=== PATIENT | male | born 1935 | race African-American/Black ===

== ENCOUNTER 2018-08-14 01:23 | Inpatient (IN) | payer MEDICARE ==
[2018-08-14] MEDS ORDERED: NACL 0.9% 1000 ML 1,000 ML IV ONE (02:09)
[2018-08-14 03:04] LABS: Basophils % (Auto) 0.1 % (0.0-1.8); Eosinophils % (Auto) 0.4 % (0.0-4.3); Hematocrit 29.7 % (35.5-45.6); Hemoglobin 10.6 gm/dl (11.8-15.2); Lymphocytes % (Auto) 10.8 % (13.4-35.0); Mean Corpuscular HGB Conc 36 % (32-34); Mean Corpuscular Volume 98 fl (84-94); Monocytes # (Auto) 0.8 K/mm3 (0.0-0.8); Monocytes % (Auto) 7.9 % (0.0-7.3); Platelet Count 187 K/mm3 (140-440); Red Blood Count 3.05 M/mm3 (3.65-5.03)
[2018-08-14 03:27] LABS: Alanine Aminotransferase 12 units/L (7-56); Albumin 3.9 g/dL (3.9-5); BUN/Creatinine Ratio 11; Blood Urea Nitrogen 9 mg/dL (9-20); Calcium 8.3 mg/dL (8.4-10.2); Hemolysis Index 20
[2018-08-14] MEDS ORDERED: ZOFRAN IV ONE (03:28)
[2018-08-14] MEDS ORDERED: TORADOL IV ONE (03:28)
[2018-08-14 03:49] LABS: Bilirubin,Urine NEG (Negative); Blood,Urine NEG (Negative); Color,Urine Yellow (Yellow); Mucus,Urine FEW /HPF; Urobilinogen,Urine < 2.0 mg/dL (<2.0); WBC,Urine < 1.0 /HPF (0.0-6.0)
--- NOTE | 2018-08-14 04:40 | Emergency Department Report ---
ED N/V/D HPI - General Chief complaint: Abdominal Pain Stated complaint: VOMITING/DIZZY/ABD & BACK PAIN Time Seen by Provider: 08/14/18 03:07 Source: patient Mode of arrival: Ambulatory Limitations: No Limitations - History of Present Illness Initial comments: 82-year-old male, hx of diabetes, presents to ED with complaint of vomiting, dizziness, lower abdominal pain radiating to the back since last night. Denies fever, diarrhea. Reports urinary frequency. No prior abdominal surgical history. PCP: Dr Benjamín TADEO complaint: nausea, vomiting, abdominal pain -: Last night Description of Vomiting: food contents, watery Associated Abdominal Pain: Yes Radiation: other (lower back) Severity: moderate Consistency: intermittent Improves with: none Worsens with: none Associated Symptoms: nausea/vomiting, weakness. denies: fever/chills, dysuria - Related Data Allergies Allergy/AdvReac Type Severity Reaction Status Date / Time No Known Allergies Allergy Verified 08/14/18 03:09 ED Review of Systems ROS: Stated complaint: VOMITING/DIZZY/ABD & BACK PAIN Other details as noted in HPI Comment: All other systems reviewed and negative Constitutional: denies: chills, fever Respiratory: denies: shortness of breath Cardiovascular: denies: chest pain Gastrointestinal: abdominal pain, nausea, vomiting Genitourinary: frequency Neurological: other (reports dizziness) ED Past Medical Hx - Past Medical History Hx Diabetes: Yes - Surgical History Additional Surgical History: TURP - Social History Smoking Status: Former Smoker Substance Use Type: None ED Physical Exam - General Limitations: No Limitations General appearance: alert, in no apparent distress - Head Head exam: Present: atraumatic, normocephalic - Eye Eye exam: Present: normal appearance - ENT ENT exam: Present: mucous membranes moist - Neck Neck exam: Present: normal inspection - Respiratory Respiratory exam: Present: normal lung sounds bilaterally. Absent: respiratory distress - Cardiovascular Cardiovascular Exam: Present: regular rate, normal rhythm - GI/Abdominal GI/Abdominal exam: Present: soft, tenderness (mild diffuse tenderness). Absent: distended - Extremities Exam Extremities exam: Present: normal inspection - Neurological Exam Neurological exam: Present: alert, oriented X3 - Psychiatric Psychiatric exam: Present: normal affect, normal mood - Skin Skin exam: Present: warm, dry, intact, normal color, rash (psoriatic rash present) ED Course Vital Signs 08/14/18 08/14/18 08/14/18 01:33 02:04 04:00 Temperature 97.8 F 97.8 F Pulse Rate 91 H 82 Respiratory 18 20 18 Rate Blood Pressure 119/73 119/73 O2 Sat by Pulse 97 99 100 Oximetry 08/14/18 04:40 Temperature Pulse Rate Respiratory 18 Rate Blood Pressure O2 Sat by Pulse Oximetry ED Medical Decision Making - Lab Data Result diagrams: 08/14/18 02:18 08/14/18 02:18 - Radiology Data Radiology results: report reviewed, image reviewed - Medical Decision Making 82-year-old male with nausea, vomiting, dizziness, abdominal pain. Vital signs normal and the patient is afebrile. UA negative for UTI. CT shows likely enteritis, gallstones w/o cholecystitis. Patient's sodium level is critically low at 116. Remainder of labs unremarkable. IV fluids given. Will admit to Dr Thomas, hospitalist, for further management. - Differential Diagnosis UTI, bowel obstruction, diverticulitis, appendicitis Critical Care Time: Yes Critical care time in (mins) excluding proc time.: 30 Critical care attestation.: If time is entered above; I have spent that time in minutes in the direct care of this critically ill patient, excluding procedure time. Critical Care Time: 30 minutes ED Disposition Clinical Impression: Hyponatremia, Enteritis Disposition: OP ADMIT IP TO THIS HOSP Is pt being admited?: Yes Condition: Serious Referrals: WILD ROSS MD [Primary Care Provider] - 3-5 Days Time of Disposition: 05:03
--- NOTE | 2018-08-14 04:42 | Cat Scan Report ---
PROCEDURE: CT ABDOMEN PELVIS W CON TECHNIQUE: Routine axial imaging was obtained of the abdomen and pelvis following the intravenous in jection of IV contrast. Delayed imaging was obtained of the kidneys ureters and bladder. Sagittal and coronal reconstructions were reviewed. HISTORY: abd pain, vomiting COMPARISONS: None FINDINGS: The lung bases reveal bronchiectatic changes in both lower lobes. There are no infiltrates or effusio ns. There is a small hiatal hernia. The gallbladder is normal size and reveal several dependent stones. There are no secondary signs of a cute cholecystitis. The liver and biliary tree appear normal. The pancreas, spleen and adrenal glands appear normal. The kidneys show no evidence of stones or hydronephrosis. There is a 1 cm benign freddie ical cyst in the ventral aspect of the left kidney. The abdominal aorta shows peripheral calcificatio n. It is normal in caliber. The portal vein enhances normally. The bowel loops reveal multiple uncomplicated sigmoid diverticula. There are several mildly distended loops of ileum in the pelvis. A mild enteritis cannot be ruled out. There Is no evidence of bowel ob struction. The appendix appears normal. In the pelvis there is generalized thickening of the bladder wall. Cystitis cannot be excluded. The prostate gland is normal size. The skeletal structures reveal multilevel disc degeneration in the lumbar spine with arthritic changes of both hip joints. IMPRESSION: Several mildly distended fluid-filled loops of ileum in the pelvis without transition point. A mild e nteritis cannot be excluded. No evidence of appendicitis. Uncomplicated sigmoid diverticulosis. Generalized bladder wall thickening. Cystitis cannot be ruled out. Gallstones. No secondary signs of acute cholecystitis. Bronchiectatic changes in both lower lobes. No infiltrates or effusions. Small hiatal hernia.. This document is electronically signed by Henrry Armando MD., August 14 2018 04:39:37 AM ET
[2018-08-14] MEDS ORDERED: TYLENOL PO PRN (05:16)
[2018-08-14] MEDS ORDERED: SODIUM CHLORIDE FLUSH SYRINGE 10 ML IV PRN (05:16)
[2018-08-14] MEDS ORDERED: ZOFRAN IV PRN (05:16)
[2018-08-14 05:54] LABS: BUN/Creatinine Ratio 10; Blood Urea Nitrogen 8 mg/dL (9-20); Calcium 7.2 mg/dL (8.4-10.2); Hemolysis Index 4
--- NOTE | 2018-08-14 06:02 | History and Physical Report ---
History of Present Illness Date of examination: 08/14/18 History of present illness: 83-year-old man history of diabetes, psoriasis, BPH emergency room with complaints of nausea vomiting and lower abdominal pain. The abdominal pain is the mid lower abdomen which she describes as a heaviness sensation, constant, radiating to the back, intensity 5/10, cannot identify exacerbating or relieving factors Review of systems Constitutional: no weight loss, chills, fever Ears, eyes, nose, mouth and throat: no nasal congestion, no nasal discharge, no sinus pressure, no vision change, no red eye. Neck: No neck pain or rigidity. Cardiovascular: no palpitations, chest pain Respiratory: no cough, shortness of breath Gastrointestinal: no hematochezia, abdominal pain Genitourinary : no frequency , no hematuria Musculoskeletal: no joint swelling or muscle ache Integumentary: no rash, no pruritis Neurological: no parathesias, no focal weakness Endocrine: no cold or heat intolerance, no polyuria or polydipsia Hematologic/Lymphatic: no easy bruising, no easy bleeding, no gland swelling Allergic/Immunologic: no urticaria, no angioedema. PAST MEDICAL HISTORY:diabetes, psoriasis, BPH PAST SURGICAL HISTORY: None SOCIAL HISTORY: Denies alcohol, drugs, tobacco FAMILY HISTORY: Hypertension Medications and Allergies Allergies Allergy/AdvReac Type Severity Reaction Status Date / Time No Known Allergies Allergy Verified 08/14/18 03:09 Home Medications Medication Instructions Recorded Confirmed Last Taken Type Albuterol Sulfate [Ventolin Hfa] 2 puff INHALATION Q4HR PRN 08/14/18 08/14/18 Unknown History Lisinopril [Zestril TAB] 40 mg PO QDAY 08/14/18 08/14/18 Unknown History Meloxicam 15 mg PO QDAY PRN 08/14/18 08/14/18 Unknown History Metformin HCl [Glucophage] 500 mg PO BID 08/14/18 08/14/18 Unknown History Tamsulosin [Flomax] 0.4 mg PO QDAY 08/14/18 08/14/18 Unknown History Triamcinolone 0.1% [Kenalog 0.1% 1 applic TP BID 08/14/18 08/14/18 Unknown History CREAM] traMADol [Ultram 50 MG tab] 50 mg PO Q6HR PRN 08/14/18 08/14/18 Unknown History Promethazine [Phenergan TAB] 25 mg PO Q6HR PRN #20 tab 08/15/18 Unknown Rx Active Meds: Active Medications Acetaminophen (Tylenol) 650 mg PO Q4H PRN PRN Reason: Pain MILD(1-3)/Fever >100.5/VALDERRAMA Enoxaparin Sodium (Lovenox) 40 mg SUB-Q QDAY@1000 FLORA Sodium Chloride (Nacl 0.9% 1000 Ml) 1,000 mls @ 250 mls/hr IV ONCE ONE Stop: 08/14/18 06:08 Last Admin: 08/14/18 04:38 Dose: 250 mls/hr Documented by: Sodium Chloride (Nacl 0.9% 1000 Ml) 1,000 mls @ 75 mls/hr IV DIRECT FLORA Ondansetron HCl (Zofran) 4 mg IV Q8H PRN PRN Reason: Nausea And Vomiting Sodium Chloride (Sodium Chloride Flush Syringe 10 Ml) 10 ml IV BID FLORA Sodium Chloride (Sodium Chloride Flush Syringe 10 Ml) 10 ml IV PRN PRN PRN Reason: LINE FLUSH Exam - Physical Exam Narrative exam: General Apperance: The patient lying in bed, breathing comfortable HEENT: Normocephalic, atraumatic. Pupils equally round and reactive to light, EOMI, no sclericterus or JVD or thyromegaly or nodule. , no carotid bruit, mucous membranes moist, no exudate or erythema Heart: S1-S2, regular is rhythm Lungs: Clear to auscultation bilaterally, breathing comfortable Abdomen: Positive bowel sounds, soft, nontender, nondistended, no organomegaly Extremities: No edema cyanosis clubbing Skin: no rash, nodule, warm and dry Neuro: cranial nerves 2-12 intact, speech is fluent, motor/sensory intact - Constitutional Vitals: Temp Pulse Resp BP Pulse Ox 97.8 F 82 16 119/73 100 08/14/18 02:04 08/14/18 02:04 08/14/18 05:10 08/14/18 02:04 08/14/18 04:00 Results - Labs CBC & Chem 7: 08/15/18 04:34 08/15/18 04:34 Labs: Abnormal lab results 08/14/18 08/14/18 08/14/18 Range/Units 02:18 02:18 05:27 RBC 3.05 L (3.65-5.03) M/mm3 Hgb 10.6 L (11.8-15.2) gm/dl Hct 29.7 L (35.5-45.6) % MCV 98 H (84-94) fl MCH 35 H (28-32) pg MCHC 36 H (32-34) % Lymph % (Auto) 10.8 L (13.4-35.0) % [place] % (Auto) 7.9 H (0.0-7.3) % Lymph # 1.0 L (1.2-5.4) K/mm3 Seg Neutrophils % 80.8 H (40.0-70.0) % Sodium 116 L* (137-145) mmol/L Chloride 81.6 L 82.9 L (98-107) mmol/L Carbon Dioxide 21 L (22-30) mmol/L BUN 8 L (9-20) mg/dL Glucose 120 H 114 H (75-100) mg/dL Calcium 8.3 L 7.2 L (8.4-10.2) mg/dL - Imaging and Cardiology CT scan - abdomen: report reviewed CT scan - pelvis: report reviewed Assessment and Plan Assessment Hyponatremia Diabetes history of psoriasis Plan Admit to medicine Start IV fluid, monitor sodium, consult renal Check fingersticks, continue appropriate outpatient medications DVT prophylaxis
[2018-08-14] MEDS ORDERED: D50W (25GM) Syringe IV PRN (06:03)
[2018-08-14] MEDS: HumaLOG SUB-Q SCH ×4 (07:58→21:00)
[2018-08-14] MEDS ORDERED: GLUCOPHAGE PO SCH (08:00)
[2018-08-14] MEDS ORDERED: LOVENOX SUB-Q SCH (10:00)
[2018-08-14] MEDS: LOVENOX SUB-Q SCH (10:08)
[2018-08-14] MEDS: FLOMAX PO SCH (10:09)
[2018-08-14] MEDS: SODIUM CHLORIDE FLUSH SYRINGE 10 ML IV SCH ×2 (10:10→21:01)
[2018-08-14] MEDS: KENALOG TP SCH ×2 (10:18→21:01)
[2018-08-14] MEDS: ZESTRIL PO SCH (10:20)
[2018-08-14 12:04] LABS: BUN/Creatinine Ratio 11; Blood Urea Nitrogen 9 mg/dL (9-20); Calcium 8.3 mg/dL (8.4-10.2); Hemolysis Index 11
--- NOTE | 2018-08-14 13:24 | Consultation ---
History of Present Illness - History of Present Illness Thank you for the consultation ! Patient was evaluated today My assessment and plan are as follows; Hyponatremia in a patient who has been admitted with a serum sodium of 116,, e tiology of hyponatremia appears to be unclear at this time, but appears to be satisfactorily improving Sodium chloride tablets 2 g 3 times a day for now Patient admitted with nausea, vomiting. Has history of diabetes, has had lower abdominal pain radiating to back Anemia with hemoglobin of 10.6, requires further workup Patient was taking meloxicam as well as Zestril in the outpatient setting, Mild metabolic acidosis: To follow, uterine specimen gravity was around 1.018 Proteinuria approximately 100 mg We'll order workup for hyponatremia . Monitor serial sodium level Discussed with Dr. Rohan Alexander Patient was adequately counseled and educated regarding multiple renal related issues. Renal prognosis remains guarded at this time All renal related questions were answered and simple [place] pertinent lab studies as well as imaging results were also discussed with patient We will continue to follow and make recommendations from renal standpoint. Thank you for the consultation Author: Chi Izaguirre M.D. [facility], [address] [place] [address] Tel; [phone] Source of information: From patient, his , current records History of present illness Patient is an 82-year-old [place] male who has been admitted here with nausea vomiting and diarrhea, he is a very poor historian, sodium was noted to be low upon admission is currently being followed by Dr. Romario Butts blood pressure upon admission was normal however the serum sodium was 116 with chloride of 81.6 creatinine was 0.8 with hemoglobin of 10.6, patient clinically appeared to be dehydrated currently on IV fluid his sodium is slowly improving Past medical history significant for Diabetes Psoriasis Benign prostatic hyperplasia Chronic pain Taking nonsteroidal drug Current allergies: Reviewed Home medication/current medication: Reviewed/ Social history/family history: Reviewed Review of systems positive for nausea vomiting lower abdominal pain and poor by mouth intake All other review of systems negative Physical examination Vitals: Reviewed General: No acute distress HEENT: Oral mucosa moist no pallor or icterus Neck: Supple without any JVD thyromegaly or nodular mass Chest: Clear to auscultation Heart: Regular rate and rhythm S1-S2 heard no S3-S4 Abdomen: Soft nontender, bowel sounds present no renal bruit no suprapubic masses no CVA tenderness noted Extremity: Minimal edema dry skin no peripheral cyanosis Endocrine: Thyroid not enlarged Psychiatric: No agitation and aggression noted Musculoskeletal: No joint effusion noted Labs and x-rays: Reviewed from this admission Medications and Allergies Allergies Allergy/AdvReac Type Severity Reaction Status Date / Time No Known Allergies Allergy Verified 08/14/18 03:09 Home Medications Medication Instructions Recorded Confirmed Last Taken Type Albuterol Sulfate [Ventolin Hfa] 2 puff INHALATION Q4HR PRN 08/14/18 08/14/18 Unknown History Lisinopril [Zestril TAB] 40 mg PO QDAY 08/14/18 08/14/18 Unknown History Meloxicam 15 mg PO QDAY PRN 08/14/18 08/14/18 Unknown History Metformin HCl [Glucophage] 500 mg PO BID 08/14/18 08/14/18 Unknown History Tamsulosin [Flomax] 0.4 mg PO QDAY 08/14/18 08/14/18 Unknown History Triamcinolone 0.1% [Kenalog] 1 applic TP BID 08/14/18 08/14/18 Unknown History traMADol [Ultram] 50 mg PO Q6HR PRN 08/14/18 08/14/18 Unknown History Active Meds: Active Medications Acetaminophen (Tylenol) 650 mg PO Q4H PRN PRN Reason: Pain MILD(1-3)/Fever >100.5/VALDERRAMA Dextrose (D50w (25gm) Syringe) 50 ml IV PRN PRN PRN Reason: Hypoglycemia Enoxaparin Sodium (Lovenox) 40 mg SUB-Q QDAY@1000 FLORA Last Admin: 08/14/18 10:08 Dose: 40 mg Documented by: Sodium Chloride (Nacl 0.9% 1000 Ml) 1,000 mls @ 75 mls/hr IV DIRECT FLORA Insulin Human Lispro (Humalog) 0 unit SUB-Q ACHS [facility]; Protocol Last Admin: 08/14/18 07:58 Dose: Not Given Documented by: Lisinopril (Zestril) 40 mg PO QDAY [facility] Last Admin: 08/14/18 10:20 Dose: 40 mg Documented by: Ondansetron HCl (Zofran) 4 mg IV Q8H PRN PRN Reason: Nausea And Vomiting Sodium Chloride (Sodium Chloride Flush Syringe 10 Ml) 10 ml IV BID [facility] Last Admin: 08/14/18 10:10 Dose: 10 ml Documented by: Sodium Chloride (Sodium Chloride Flush Syringe 10 Ml) 10 ml IV PRN PRN PRN Reason: LINE FLUSH Tamsulosin HCl (Flomax) 0.4 mg PO QDAY [facility] Last Admin: 08/14/18 10:09 Dose: 0.4 mg Documented by: Triamcinolone Acetonide (Kenalog) 1 applic TP BID [facility] Last Admin: 08/14/18 10:18 Dose: 1 applic Documented by: Exam - Vital Signs Vital signs: Vital Signs Temp Pulse Resp BP Pulse Ox 97.8 F 91 H 18 119/73 97 08/14/18 01:33 08/14/18 01:33 08/14/18 01:33 08/14/18 01:33 08/14/18 01:33 Results - Lab Results 08/14/18 02:18 08/14/18 11:18 Most recent lab results Calcium 8.3 mg/dL (8.4-10.2) L D 08/14/18 11:18
--- NOTE | 2018-08-14 14:25 | Progress Note ---
Assessment and Plan Assessment and plan: Event note: Patient presents with nausea, vomiting. I have seen and examined him. Nephrology following for hyponatremia. Hospitalist Physical - Constitutional Vitals: Temp Pulse Resp BP Pulse Ox 97.6 F 84 18 151/62 96 08/14/18 09:00 08/14/18 09:00 08/14/18 09:00 08/14/18 09:00 08/14/18 09:00 Results - Labs CBC & Chem 7: 08/15/18 04:34 08/15/18 04:34 Labs: Laboratory Last Values WBC 9.5 K/mm3 (4.5-11.0) 08/14/18 02:18 RBC 3.05 M/mm3 (3.65-5.03) L 08/14/18 02:18 Hgb 10.6 gm/dl (11.8-15.2) L 08/14/18 02:18 Hct 29.7 % (35.5-45.6) L 08/14/18 02:18 MCV 98 fl (84-94) H 08/14/18 02:18 MCH 35 pg (28-32) H 08/14/18 02:18 MCHC 36 % (32-34) H 08/14/18 02:18 RDW 15.0 % (13.2-15.2) 08/14/18 02:18 Plt Count 187 K/mm3 (140-440) 08/14/18 02:18 Lymph % (Auto) 10.8 % (13.4-35.0) L 08/14/18 02:18 [place] % (Auto) 7.9 % (0.0-7.3) H 08/14/18 02:18 Eos % (Auto) 0.4 % (0.0-4.3) 08/14/18 02:18 Baso % (Auto) 0.1 % (0.0-1.8) 08/14/18 02:18 Lymph # 1.0 K/mm3 (1.2-5.4) L 08/14/18 02:18 [place] # 0.8 K/mm3 (0.0-0.8) 08/14/18 02:18 Eos # 0.0 K/mm3 (0.0-0.4) 08/14/18 02:18 Baso # 0.0 K/mm3 (0.0-0.1) 08/14/18 02:18 Seg Neutrophils % 80.8 % (40.0-70.0) H 08/14/18 02:18 Seg Neutrophils # 7.7 K/mm3 (1.8-7.7) 08/14/18 02:18 Sodium 121 mmol/L (137-145) L D 08/14/18 11:18 Potassium 4.3 mmol/L (3.6-5.0) 08/14/18 11:18 Chloride 84.8 mmol/L (98-107) L 08/14/18 11:18 Carbon Dioxide 23 mmol/L (22-30) 08/14/18 11:18 Anion Gap 18 mmol/L 08/14/18 11:18 BUN 9 mg/dL (9-20) 08/14/18 11:18 Creatinine 0.8 mg/dL (0.8-1.5) 08/14/18 11:18 Estimated GFR > 60 ml/min 08/14/18 11:18 BUN/Creatinine Ratio 11 % 08/14/18 11:18 Glucose 91 mg/dL (75-100) 08/14/18 11:18 POC Glucose 104 (70-105) 08/14/18 11:28 Calcium 8.3 mg/dL (8.4-10.2) L D 08/14/18 11:18 Total Bilirubin 0.70 mg/dL (0.1-1.2) 08/14/18 02:18 AST 25 units/L (5-40) 08/14/18 02:18 ALT 12 units/L (7-56) 08/14/18 02:18 Alkaline Phosphatase 99 units/L (35-129) 08/14/18 02:18 Total Protein 6.6 g/dL (6.3-8.2) 08/14/18 02:18 Albumin 3.9 g/dL (3.9-5) 08/14/18 02:18 Albumin/Globulin Ratio 1.4 % 08/14/18 02:18 Lipase 23 units/L (13-60) 08/14/18 02:18 Urine Color Yellow (Yellow) 08/14/18 03:30 Urine Turbidity Clear (Clear) 08/14/18 03:30 Urine pH 7.0 (5.0-7.0) 08/14/18 03:30 Ur Specific [place] 1.018 (1.003-1.030) 08/14/18 03:30 Urine Protein 100 mg/dl mg/dL (Negative) 08/14/18 03:30 Urine Glucose (UA) 50 mg/dL (Negative) 08/14/18 03:30 Urine Ketones Tr mg/dL (Negative) 08/14/18 03:30 Urine Blood Neg (Negative) 08/14/18 03:30 Urine Nitrite Neg (Negative) 08/14/18 03:30 Urine Bilirubin Neg (Negative) 08/14/18 03:30 Urine Urobilinogen < 2.0 mg/dL (<2.0) 08/14/18 03:30 Ur Leukocyte Esterase Neg (Negative) 08/14/18 03:30 Urine WBC (Auto) < 1.0 /HPF (0.0-6.0) 08/14/18 03:30 Urine RBC (Auto) 5.0 /HPF (0.0-6.0) 08/14/18 03:30 U Epithel Cells (Auto) < 1.0 /HPF (0-13.0) 08/14/18 03:30 Urine Mucus Few /HPF 08/14/18 03:30
[2018-08-14] MEDS: SODIUM CHLORIDE PO SCH ×2 (17:27→20:25)
[2018-08-14] MEDS: NACL 0.9% 1000 ML 1,000 ML IV SCH (20:59)
[2018-08-15 05:05] LABS: Hematocrit 29.6 % (35.5-45.6); Hemoglobin 10.3 gm/dl (11.8-15.2); Mean Corpuscular HGB Conc 35 % (32-34); Mean Corpuscular Volume 95 fl (84-94); Platelet Count 181 K/mm3 (140-440); Red Blood Count 3.13 M/mm3 (3.65-5.03); Red Cell Distribution Width 15.2 % (13.2-15.2)
[2018-08-15 05:46] LABS: BUN/Creatinine Ratio 10; Blood Urea Nitrogen 9 mg/dL (9-20); Hemolysis Index 4
[2018-08-15] MEDS: HumaLOG SUB-Q SCH ×2 (08:48→14:20)
[2018-08-15] MEDS: SODIUM CHLORIDE PO SCH (09:26)
[2018-08-15] MEDS: ZESTRIL PO SCH (09:27)
[2018-08-15] MEDS: FLOMAX PO SCH (09:27)
[2018-08-15] MEDS: LOVENOX SUB-Q SCH (09:27)
[2018-08-15] MEDS: KENALOG TP SCH (09:33)
[2018-08-15] MEDS: NACL 0.9% 1000 ML 1,000 ML IV SCH (09:33)
--- NOTE | 2018-08-15 12:01 | Discharge Summary ---
Providers - Providers Date of Admission: 08/14/18 05:16 Date of discharge: 08/15/18 Attending physician: KATIUSKA PIZANO 08/14/18 05:16 Consult to Physician [CONS] Routine Comment: Consulting Provider: MARK ANTHONY HECTOR Physician Instructions: Reason For Exam: na 116 Primary care physician: MIKAEL TSAI Hospitalization Condition: Fair Hospital course: Patient is 83-year-old with diabetes, psoriasis, BPH. He presents with nausea vomiting and abdominal pain. Patient was referred to the emergency department. He has had hyponatremia with initial sodium was 116. Nephrology was consulted and he was evaluated. On normal saline IV fluid, sodium improved to 121 and then to 138. Nausea and vomiting subsided . Patient was subsequently discharged home following day to follow as an outpatient Disposition: TO HOME OR SELFCARE - Discharge Diagnoses (1) Nausea and vomiting Status: Acute (2) Diabetes mellitus type 2 in nonobese Status: Acute (3) Enteritis Status: Acute (4) Hyponatremia Status: Acute Core Measure Documentation - Palliative Care Palliative Care/ Comfort Measures: Not Applicable - Core Measures Any of the following diagnoses?: none Exam - Constitutional Vitals: Temp Pulse Resp BP Pulse Ox 97.8 F 80 16 160/53 94 08/15/18 07:28 08/15/18 07:28 08/15/18 10:00 08/15/18 07:28 08/15/18 10:00 Plan Activity: no restrictions Diet: regular Additional Instructions: 1.Follow up with PCP in 1 week. 2.Follow up with Dr. Izaguirre in 1 week Prescriptions: Promethazine [Phenergan TAB] 25 mg PO Q6HR PRN #20 tab PRN Reason: Nausea or vomiting
--- NOTE | 2018-08-15 12:57 | Progress Note ---
Assessment and Plan Impression * hyponatremia. Patient clinically euvolemic Recommendations * Patient's hyponatremia has been corrected with IV saline * Unclear if he had a prerenal component * Urinary electrolytes have not been done. Serum osmolality is now 270 but this is with a normal serum sodium * Suspect he may have had a component of SIADH * Patient admits to drinking a lot of water. Advised to reduce his free water intake * No objection to discharge from renal standpoint. Advised to follow-up as outpatient Subjective Date of service: 08/15/18 Interval history: Patient feels well this morning. Denies any shortness of breath. No nausea or vomiting. Objective - Vital Signs Vital signs: Vital Signs - 12hr 08/15/18 08/15/18 08/15/18 04:57 07:28 10:00 Temperature 98.2 F 97.8 F Pulse Rate 59 L 80 Respiratory 16 18 16 Rate Blood Pressure 140/52 160/53 O2 Sat by Pulse 98 94 94 Oximetry - General Appearance General appearance: well-developed, well-nourished, appears stated age EENT: PERRL, mucous membranes moist Neck: no JVD, no thyromegaly, no carotid bruit, supple Respiratory: Present: Clear to Ascultation Cardiology: regular, normal heart rate, S1S2, no murmurs Gastrointestinal: normal, normoactive bowel sounds Integumentary: no rash, warm and dry Neurologic: no focal deficit - Lab 08/15/18 04:34 08/15/18 04:34 Most recent lab results Calcium 8.0 mg/dL (8.4-10.2) L 08/15/18 04:34 Phosphorus 2.50 mg/dL (2.5-4.5) 08/15/18 04:34 Magnesium 2.00 mg/dL (1.7-2.3) 08/15/18 04:34 Medications & Allergies - Medications Allergies/Adverse Reactions: Allergies No Known Allergies Allergy (Verified 08/14/18 03:09) Home Medications: Home Medications Medication Instructions Recorded Confirmed Last Taken Type Albuterol Sulfate [Ventolin Hfa] 2 puff INHALATION Q4HR PRN 08/14/18 08/14/18 Unknown History Lisinopril [Zestril TAB] 40 mg PO QDAY 08/14/18 08/14/18 Unknown History Meloxicam 15 mg PO QDAY PRN 08/14/18 08/14/18 Unknown History Metformin HCl [Glucophage] 500 mg PO BID 08/14/18 08/14/18 Unknown History Tamsulosin [Flomax] 0.4 mg PO QDAY 08/14/18 08/14/18 Unknown History Triamcinolone 0.1% [Kenalog 0.1% 1 applic TP BID 08/14/18 08/14/18 Unknown History CREAM] traMADol [Ultram 50 MG tab] 50 mg PO Q6HR PRN 08/14/18 08/14/18 Unknown History Promethazine [Phenergan TAB] 25 mg PO Q6HR PRN #20 tab 08/15/18 Unknown Rx Active Medications: Generic Name Dose Route Start Last Admin Trade Name Freq PRN Reason Stop Dose Admin Acetaminophen 650 mg 08/14/18 05:16 Tylenol PO Q4H PRN Pain MILD(1-3)/Fever >100.5/VALDERRAMA Dextrose 50 ml 08/14/18 06:03 D50w (25gm) Syringe IV PRN PRN Hypoglycemia Enoxaparin Sodium 40 mg 08/14/18 10:00 08/15/18 09:27 Lovenox SUB-Q 40 mg QDAY@1000 FLORA Administration Sodium Chloride 1,000 mls @ 75 mls/hr 08/14/18 06:00 08/15/18 09:33 Nacl 0.9% 1000 Ml IV 75 mls/hr DIRECT FLORA Administration Insulin Human Lispro 0 unit 08/14/18 07:30 08/15/18 08:48 Humalog SUB-Q Not Given [facility] Protocol Lisinopril 40 mg 08/14/18 10:00 08/15/18 09:27 Zestril PO 40 mg QDAY FLORA Administration Ondansetron HCl 4 mg 08/14/18 05:16 Zofran IV Q8H PRN Nausea And Vomiting Sodium Chloride 10 ml 08/14/18 10:00 08/14/18 21:01 Sodium Chloride Flush Syringe 10 Ml IV 10 ml BID FLORA Administration Sodium Chloride 10 ml 08/14/18 05:16 Sodium Chloride Flush Syringe 10 Ml IV PRN PRN LINE FLUSH Sodium Chloride 2 gm 08/14/18 16:00 08/15/18 09:26 Sodium Chloride PO 2 gm TID FLORA Administration Tamsulosin HCl 0.4 mg 08/14/18 10:00 08/15/18 09:27 Flomax PO 0.4 mg QDAY FLORA Administration Triamcinolone Acetonide 1 applic 08/14/18 10:00 08/15/18 09:33 Kenalog TP 1 applic BID FLORA Administration
[2018-08-15 13:46] VITALS: BP 123/54
== END 2018-08-15 14:10 | disposition home or self-care (01) | DRG 644 ==
LOC: ED 01:23 → SUATTDRO 01:23 → 4A 05:16
PROVIDERS: ADMIT Internal Medicine; ATTEND Internal Medicine
DX: E22.2 Syndrome of inappropriate secretion of antidiuretic hormone (principal); E87.2 Acidosis; K52.9 Noninfective gastroenteritis and colitis, unspecified; N40.0 Benign prostatic hyperplasia without lower urinary tract symptoms; D64.9 Anemia, unspecified; E11.9 Type 2 diabetes mellitus without complications; Z82.49 Family history of ischemic heart disease and other diseases of the circulatory system; Z79.51 Long term (current) use of inhaled steroids; Z79.84 Long term (current) use of oral hypoglycemic drugs; Z87.891 Personal history of nicotine dependence
CPT/HCPCS: 36415; 74177; 80048; 80053; 81001; 82533; 82962; 83690; 83735; 83930; 84100; 84439; 84550; 85025; 85027; 93005; 93010; 96374; G0378; J1650; J1885; J2405; J7030; J7050; Q9967

== ENCOUNTER 2019-10-04 11:31 | Emergency (ER) | payer MEDICARE ==
[2019-10-04 11:41] VITALS: BP 186/68
--- NOTE | 2019-10-04 12:23 | Emergency Department Report ---
ED Rash HPI - HPI Chief Complaint: Skin/Abscess/Foreign Body Stated Complaint: RT HAND PAIN Time Seen by Provider: 10/04/19 12:22 Location: Upper Extremities Suspected Cause: Other Rash Symptoms: No Itching, No Facial Swelling, No Tongue/Oral Swelling, No Breathing Difficulties, No Choking Sensation, No Wheezing/Dyspnea, No Peeling, No Blistering, No Fever, No Lightheaded, No Malaise, No Myalgias Severity: mild Other History: Patient is a very pleasant 84-year-old [place]ian who comes to the ER with a rash on his right hand. It is on the right medial nerve distribution. He states that it is very painful. It keeps him up at night. He has had it for several weeks and has been medicating it with [id number] ointments. These ointments have made the skin macerate and turn white and peel. Patient is diabetic. Patient states that he is concerned that this is shingles. The pain is neuropathic and consistent with shingles. The lesions are vesicular in nature. Patient appears younger than stated age and is quite active for his 84 years. Patient has not seen his primary care for this. ED Review of Systems ROS: Stated complaint: RT HAND PAIN Other details as noted in HPI Comment: All other systems reviewed and negative ED Past Medical Hx - Past Medical History Previous Medical History?: Yes Hx Hypertension: Yes Hx CVA: No Hx Heart Attack/AMI: No Hx Congestive Heart Failure: No Hx Diabetes: Yes Hx Deep Vein Thrombosis: No Hx Pulmonary Embolism: No Hx GERD: No Hx Liver Disease: No Hx Renal Disease: No Hx of Cancer: No Hx Sickle Cell Disease: No Hx Arthritis: No Hx Headaches / Migraines: No Hx Seizures: No Hx Kidney Stones: No Hx Psychiatric Treatment: No Hx Asthma: No Hx Tuberculosis: No Hx Dementia: No Hx HIV: No - Surgical History Past Surgical History?: Yes Additional Surgical History: TURP - Family History Family history: no significant - Social History Smoking Status: Never Smoker Substance Use Type: None - Medications Home Medications: Home Medications Medication Instructions Recorded Confirmed Last Taken Type Albuterol Sulfate [Ventolin Hfa] 2 puff INHALATION Q4HR PRN 08/14/18 08/14/18 Unknown History Metformin HCl [Glucophage] 500 mg PO BID 08/14/18 08/14/18 Unknown History Tamsulosin [Flomax] 0.4 mg PO QDAY 08/14/18 08/14/18 Unknown History lisinopriL [Zestril TAB] 40 mg PO QDAY 08/14/18 08/14/18 Unknown History Acyclovir [Zovirax Tab] 800 mg PO Q12H #10 tab 10/04/19 Unknown Rx Gabapentin 100 mg PO Q12H #10 capsule 10/04/19 Unknown Rx predniSONE [Deltasone] 20 mg PO DAILY #5 tablet 10/04/19 Unknown Rx Rash Exam - Exam General: Vital signs noted. No distress. Alert and acting appropriately. HEENT: No Periorbital Edema, No Conjuctival Injection, No Chemosis, No Perioral Edema, No Tongue Edema, No Uvular Edema, No Compromised Airway, No Drooling Lungs: Yes Good Air Exchange (Normal Breath Sounds), No Wheezes, No Ronchi, No Stridor, No Cough, No Labored Respirations, No Retractions, No Use of Accessory Muscles, No Other Abnormal Lung Sounds Heart: Yes Regular, No Murmur Skin: Yes Other (Vesicular rash on the right radial nerve distribution) Other: Positive: Abdomen Normal, Neurologic Normal, Musculoskeletal Normal ED Course Vital Signs 10/04/19 11:41 Temperature 98.5 F Pulse Rate 81 Respiratory 16 Rate Blood Pressure 186/68 [Right] O2 Sat by Pulse 98 Oximetry ED Medical Decision Making - Medical Decision Making Patient does not have fever or chills. He is afebrile in the ER. He states that he has never had fever or chills. He denies chest pain or shortness of breath. Denies nausea vomiting diarrhea. Denies any systemic symptoms. He just reports this rash of the right hand. The rash is on the radial nerve distribution. It is painful. So much so that it is keeping him awake at night. Given his presentation and lesions consistent with shingles patient being treated for herpes zoster. Patient has been educated on discharge plan of care and will be discharged home on antivirals, gabapentin and prednisone. He has been advised to monitor his blood sugar for may increase slightly while on these medications. Patient is thin, pliant with diet and compliant with his metformin. Vital Signs 10/04/19 11:41 Temperature 98.5 F Pulse Rate 81 Respiratory 16 Rate Blood Pressure 186/68 [Right] O2 Sat by Pulse 98 Oximetry - Differential Diagnosis Shingles versus benign rash versus infectious rash Critical care attestation.: If time is entered above; I have spent that time in minutes in the direct care of this critically ill patient, excluding procedure time. ED Disposition Clinical Impression: History of diabetes mellitus, Shingles Disposition: DC- TO HOME OR SELFCARE Is pt being admited?: No Does the pt Need Aspirin: No Condition: Stable Additional Instructions: keep rash DRY DO NOT USE OINTMENTS MEDS ORDERED TODAY SEE PCP NEXT WEEK TO BE SURE THIS IS GETTING BETTER REFERRAL BELOW DIABETIC DIET MONITOR BLOOD SUGAR ACTIVITY TOLERATED STAY WELL HYDRATED Prescriptions: predniSONE [Deltasone] 20 mg PO DAILY #5 tablet Gabapentin 100 mg PO Q12H #10 capsule Acyclovir [Zovirax Tab] 800 mg PO Q12H #10 tab Referrals: WILD ROSS MD [Staff Physician] - 3-5 Days Time of Disposition: 12:26
[2019-10-04] MEDS ORDERED: SODIUM CHLORIDE IRRI 500 ML 500 ML IR ONE (12:24)
[2019-10-04] MEDS ORDERED: SODIUM CHLORIDE 0.9% IRR 500 ML BOTTLE IR ONE (12:25)
== END 2019-10-04 13:17 | disposition home or self-care (01) ==
LOC: ED 11:31
DX: B02.8 Zoster with other complications (principal); I10 Essential (primary) hypertension; Z79.899 Other long term (current) drug therapy
CPT/HCPCS: 82962; 94640; 99281

== ENCOUNTER 2021-05-28 20:05 | Observation (INO) | payer MEDICARE ==
[2021-05-28] MEDS ORDERED: ONDANSETRON 4 MG/2 ML INJ IV ONE (21:07)
[2021-05-28] MEDS ORDERED: MORPHINE 2 MG/1 ML INJ IV ONE (21:07)
[2021-05-28] MEDS ORDERED: PANTOPRAZOLE 40 MG INJ IV ONE (21:08)
--- NOTE | 2021-05-28 21:13 | Emergency Department Report ---
ED GI Bleed HPI - General Chief complaint: GI Bleed Stated complaint: RECTAL BLEEDING Time Seen by Provider: 05/28/21 20:55 Source: patient Mode of arrival: Ambulatory Limitations: No Limitations - History of Present Illness Initial comments: CC: "blood in stool. I think it is peptic ulcer." HPI: This is a 85-year-old male history of hypertension, diabetes mellitus, BPH, psoriasis who presents with bloody stools and abdominal pain. [address] ools. He has diffuse crampy moderately severe abdominal pain. He denies use of aspirin, ibuprofen. He denies use of anticoagulation. No history of colonoscopy as he can recall. Medications: Lisinopril, Flomax, Metformin, Tylenol complaint: gross hematochezia, other (Bloody stool "fresh blood") -: Gradual, days(s) (5 days) Severity scale (0 -10): 7 Quality: cramping Consistency: constant Improves with: none Worsens with: none Context: other (No previous history of GI bleeding no previous history of peptic ulcer disease) - Related Data Home Medications Medication Instructions Recorded Confirmed Last Taken Albuterol Sulfate [Ventolin Hfa] 2 puff INHALATION Q4HR PRN 08/14/18 08/14/18 Unknown Metformin HCl [Glucophage] 500 mg PO BID 08/14/18 08/14/18 Unknown Tamsulosin [Flomax] 0.4 mg PO QDAY 08/14/18 08/14/18 Unknown lisinopriL [Zestril TAB] 40 mg PO QDAY 08/14/18 08/14/18 Unknown Previous Rx's Medication Instructions Recorded Last Taken Type Acyclovir [Zovirax Tab] 800 mg PO Q12H #10 tab 10/04/19 Unknown Rx Gabapentin 100 mg PO Q12H #10 capsule 10/04/19 Unknown Rx predniSONE [Deltasone] 20 mg PO DAILY #5 tablet 10/04/19 Unknown Rx Famotidine [Pepcid] 20 mg PO BID 30 Days #60 tablet 01/07/20 Unknown Rx Melatonin [Melatonin 10MG TAB] 10 mg PO QHS 7 Days #7 tablet 01/07/20 Unknown Rx Allergies Allergy/AdvReac Type Severity Reaction Status Date / Time No Known Allergies Allergy Verified 05/28/21 20:10 ED Review of Systems ROS: Stated complaint: RECTAL BLEEDING Other details as noted in HPI Comment: All other systems reviewed and negative Constitutional: denies: chills, fever, malaise Respiratory: denies: cough, shortness of breath Cardiovascular: denies: chest pain Gastrointestinal: abdominal pain, hematochezia Skin: rash (History of psoriasis) ED Past Medical Hx - Past Medical History Previous Medical History?: Yes Hx Hypertension: Yes Hx CVA: No Hx Heart Attack/AMI: No Hx Congestive Heart Failure: No Hx Diabetes: Yes Hx Deep Vein Thrombosis: No Hx Pulmonary Embolism: No Hx GERD: No Hx Liver Disease: No Hx Renal Disease: No Hx Sickle Cell Disease: No Hx Arthritis: No Hx Headaches / Migraines: No Hx Seizures: No Hx Kidney Stones: No Hx Psychiatric Treatment: No Hx Asthma: No Hx Tuberculosis: No Hx Dementia: No Hx HIV: No - Surgical History Past Surgical History?: Yes Additional Surgical History: TURP - Social History Smoking Status: Never Smoker Substance Use Type: None - Medications Home Medications: Home Medications Medication Instructions Recorded Confirmed Last Taken Type Albuterol Sulfate [Ventolin Hfa] 2 puff INHALATION Q4HR PRN 08/14/18 08/14/18 Unknown History Metformin HCl [Glucophage] 500 mg PO BID 08/14/18 08/14/18 Unknown History Tamsulosin [Flomax] 0.4 mg PO QDAY 08/14/18 08/14/18 Unknown History lisinopriL [Zestril TAB] 40 mg PO QDAY 08/14/18 08/14/18 Unknown History Acyclovir [Zovirax Tab] 800 mg PO Q12H #10 tab 10/04/19 Unknown Rx Gabapentin 100 mg PO Q12H #10 capsule 10/04/19 Unknown Rx predniSONE [Deltasone] 20 mg PO DAILY #5 tablet 10/04/19 Unknown Rx Famotidine [Pepcid] 20 mg PO BID 30 Days #60 tablet 01/07/20 Unknown Rx Melatonin [Melatonin 10MG TAB] 10 mg PO QHS 7 Days #7 tablet 01/07/20 Unknown Rx ED Physical Exam - General Limitations: No Limitations General appearance: alert, in no apparent distress, other (Ambulates around the room without difficulty, nontoxic-appearing) - Head Head exam: Present: atraumatic, normocephalic - Eye Eye exam: Present: normal appearance - ENT ENT exam: Present: mucous membranes moist - Neck Neck exam: Present: normal inspection, full ROM - Respiratory Respiratory exam: Present: normal lung sounds bilaterally. Absent: respiratory distress, wheezes, rales, rhonchi - Cardiovascular Cardiovascular Exam: Present: regular rate, normal rhythm, normal heart sounds. Absent: systolic murmur, diastolic murmur, rubs, gallop - GI/Abdominal GI/Abdominal exam: Present: soft, normal bowel sounds. Absent: distended, tenderness, guarding - Rectal Rectal exam: Present: heme (+) stool, bloody stool, other (Red watery stool) - Extremities Exam Extremities exam: Present: normal inspection - Back Exam Back exam: Present: normal inspection - Neurological Exam Neurological exam: Present: alert, oriented X3 - Psychiatric Psychiatric exam: Present: normal affect, normal mood - Skin Skin exam: Present: rash, other (Psoriatic plaques lower back buttocks) ED Course Vital Signs 05/28/21 20:07 Temperature 98.1 F Pulse Rate 79 Respiratory 20 Rate Blood Pressure 158/41 [Right] O2 Sat by Pulse 97 Oximetry ED Medical Decision Making - Lab Data Result diagrams: 05/28/21 21:17 05/28/21 21:17 - Radiology Data Radiology results: report reviewed Patient Name: SEJAL HADDAD Gender: Male Date of : 1935 Referring Provider: PARMINDER NAM Organization: [facility] Accession Number: [id number] Requested Date: May 28, 2021 22:22 Report Status: Final Requested Procedure: 1 Procedure Description: CT angio abdomen pelvis Modality: CT Findings Reporting MD: Reagan Velasco Dictation Time: May 28, 2021 21:52 Fugitive Investigator: Not available Client Onboarding Analyst Date: CTA ABDOMEN AND PELVIS WITHOUT AND WITH IV CONTRAST INDICATION / CLINICAL INFORMATION: GI Bleed diffuse abdominal pain. TECHNIQUE: Axial CT images were obtained through the abdomen and pelvis before and after after injection of 100 cc Omnipaque 350 IV contrast. 3 plane MIP / 3D reconstructions were produced. All CT scans at this location are performed using CT dose reduction for ALARA by means of automated exposure control. COMPARISON: CT from 01/07/2020. FINDINGS: No evidence of bowel obstruction or inflammation. No evidence of active gastrointestinal bleed. Scattered colonic diverticulosis without evidence of diverticulitis. Normal appendix. Lung bases are clear. There is cholelithiasis. No evidence of cholecystitis. Small probable flash filling hemangioma in the spleen. No acute abnormality of the kidneys and bladder. Suspected TURP defect noted in the prostate gland. Moderate calcified and noncalcified atheromatous plaque throughout the aortoiliac system. There is mild atherosclerotic narrowing at the origin of the celiac and SMA. There is no evidence of significant ath erosclerotic narrowing or occlusion. No evidence of aneurysm. 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 Mild/moderate multilevel thoracolumbar spondylosis. No acute process. IMPRESSION: 1. No acute abnormality. No evidence of active GI bleed. 2. No evidence of bowel obstruction or localized bowel inflammation. Scattered colonic diverticulosis without evidence of diverticulitis. 3. Other chronic and incidental findings as above. - Medical Decision Making 1. Acute lower GI bleed: Differential diagnosis includes diverticular bleed, malignancy, AVM. No evidence of acute inflammatory structure process on CT scan. Admitted to the hospital service. I consulted Dr. Zepeda GI specialist. 2. Abdominal pain: CT abdomen pelvis without inflammatory obstructive process, differential diagnosis includes gastroparesis, peptic ulcer disease, IBS 3. Severe hyponatremia with mild symptoms of abdominal pain: Appears to be chr onic, significant hyponatremia diagnosed 2019 differential diagnosis includes volume depletion, adrenal insufficiency, SIADH, malnutrition Critical care attestation.: If time is entered above; I have spent that time in minutes in the direct care of this critically ill patient, excluding procedure time. ED Disposition Clinical Impression: Acute lower GI bleeding, Hyponatremia Disposition: ADMITTED INPATIENT Is pt being admited?: Yes Does the pt Need Aspirin: No Condition: Stable Referrals: MIKAEL TSAI MD [Primary Care Provider] - 3-5 Days Forms: Accompanied Note
[2021-05-28 21:32] LABS: Basophils % (Auto) 0.4 % (0.0-1.8); Eosinophils % (Auto) 0.3 % (0.0-4.3); Hematocrit 32.8 % (35.5-45.6); Hemoglobin 10.9 gm/dl (11.8-15.2); Lymphocytes # (Auto) 2.2 K/mm3 (1.2-5.4); Lymphocytes % (Auto) 19.6 % (13.4-35.0); Mean Corpuscular HGB Conc 33 % (32-34); Mean Corpuscular Volume 102 fl (84-94); Monocytes # (Auto) 1.3 K/mm3 (0.0-0.8); Monocytes % (Auto) 11.4 % (0.0-7.3); Platelet Count 247 K/mm3 (140-440); Red Blood Count 3.23 M/mm3 (3.65-5.03); Red Cell Distribution Width 15.5 % (13.2-15.2)
[2021-05-28 21:45] LABS: INR 0.93 (0.87-1.13)
[2021-05-28 21:46] LABS: Partial Thromboplastin Time 37.8 Sec. (24.2-36.6)
[2021-05-28 21:53] LABS: Alanine Aminotransferase 14 units/L (7-56); Albumin 4.3 g/dL (3.9-5); BUN/Creatinine Ratio 14; Blood Urea Nitrogen 14 mg/dL (9-20); Calcium 9.1 mg/dL (8.4-10.2); Hemolysis Index 9
--- NOTE | 2021-05-28 22:56 | Cat Scan Report ---
CTA ABDOMEN AND PELVIS WITHOUT AND WITH IV CONTRAST INDICATION / CLINICAL INFORMATION: GI Bleed diffuse abdominal pain. TECHNIQUE: Axial CT images were obtained through the abdomen and pelvis before and after after injection of 100 cc Omnipaque 350 IV contrast. 3 plane MIP / 3D reconstructions were produced. All CT [facility] are performed using CT dose reduction for ALARA by means of automated exposure control. COMPARISON: CT from 01/07/2020. FINDINGS: No evidence of bowel obstruction or inflammation. No evidence of active gastrointestinal bleed. Scatt ered colonic diverticulosis without evidence of diverticulitis. Normal appendix. Lung bases are clear. There is cholelithiasis. No evidence of cholecystitis. Small probable flash vanessa ling hemangioma in the spleen. No acute abnormality of the kidneys and bladder. Suspected TURP defect noted in the prostate gland. Moderate calcified and noncalcified atheromatous plaque throughout the aortoiliac system. There is mi ld atherosclerotic narrowing at the origin of the celiac and SMA. There is no evidence of significant atherosclerotic narrowing or occlusion. No evidence of aneurysm. 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 Mild/moderate multilevel thoracolumbar spondylosis. No acute process. IMPRESSION: 1. No acute abnormality. No evidence of active GI bleed. 2. No evidence of bowel obstruction or localized bowel inflammation. Scattered colonic diverticulosis without evidence of diverticulitis. 3. Other chronic and incidental findings as above. Signer Name: Reagan Velasco MD Signed: 05/28/2021 10:52 PM Workstation Name: [id number]
[2021-05-29] MEDS ORDERED: ONDANSETRON 4 MG/2 ML INJ IV PRN (00:10)
[2021-05-29] MEDS ORDERED: HYDROmorphone 1 MG/1 ML INJ IV PRN (00:10)
[2021-05-29] MEDS ORDERED: MORPHINE 2 MG/1 ML INJ IV PRN (00:10)
[2021-05-29] MEDS ORDERED: ALBUTEROL 2.5 MG/3 ML NEBU IH PRN (00:10)
[2021-05-29] MEDS ORDERED: ACETAMINOPHEN 325 MG TAB PO PRN (00:10)
[2021-05-29] MEDS ORDERED: ALBUTEROL 8.5 GM MDI INHALATION IH PRN (00:11)
[2021-05-29] MEDS ORDERED: SODIUM CHLORIDE 0.9% 1000 ML 1,000 ML IV SCH (00:15)
[2021-05-29] MEDS ORDERED: DEXTROSE 50% IN WATER (25GM) 50 ML SYRINGE IV PRN (00:19)
--- NOTE | 2021-05-29 00:19 | History and Physical Report ---
History of Present Illness Date of examination: 05/29/21 Date of admission: 05/28/21 23:03 Chief complaint: Blood in the stool History of present illness: 85-year-old male history of hypertension, diabetes mellitus, BPH, psoriasis who presents with bloody stools and abdominal pain for 3-4 days as per the . he has diffuse crampy moderately severe abdominal pain. He denies use of aspirin, ibuprofen. He denies use of anticoagulation. No history of colonoscopy as he can recall. In the emergency room CT scan of the abdomen showed no acute abnormality no ev idence of active GI bleeding. No evidence of bowel obstruction or localized bowel inflammation. Scattered colonic diverticulosis without evidence of diverticulitis. Initial globin is 10.9 and hematocrit 32.8. So going to admit the patient will consult GI for evaluation Med rec is done Past History Past Medical History: diabetes, hypertension Past Surgical History: TURP Medications and Allergies Allergies Allergy/AdvReac Type Severity Reaction Status Date / Time No Known Allergies Allergy Verified 05/28/21 20:10 Home Medications Medication Instructions Recorded Confirmed Last Taken Type Albuterol Sulfate [Ventolin Hfa] 2 puff INHALATION Q4HR PRN 08/14/18 08/14/18 Unknown History Metformin HCl [Glucophage] 500 mg PO BID 08/14/18 08/14/18 Unknown History Tamsulosin [Flomax] 0.4 mg PO QDAY 08/14/18 08/14/18 Unknown History lisinopriL [Zestril TAB] 40 mg PO QDAY 08/14/18 08/14/18 Unknown History Acyclovir [Zovirax Tab] 800 mg PO Q12H #10 tab 10/04/19 Unknown Rx Gabapentin 100 mg PO Q12H #10 capsule 10/04/19 Unknown Rx predniSONE [Deltasone] 20 mg PO DAILY #5 tablet 10/04/19 Unknown Rx Famotidine [Pepcid] 20 mg PO BID 30 Days #60 tablet 01/07/20 Unknown Rx Melatonin [Melatonin 10MG TAB] 10 mg PO QHS 7 Days #7 tablet 01/07/20 Unknown Rx Active Meds: Active Medications Acetaminophen (Acetaminophen 325 Mg Tab) 650 mg PO Q4H PRN PRN Reason: Pain MILD(1-3)/Fever >100.5/[place] Acyclovir (Acyclovir 800 Mg Tab) 800 mg PO Q12H FLORA; Protocol Albuterol (Albuterol 2.5 Mg/3 Ml Nebu) 2.5 mg IH Q4HRT PRN PRN Reason: Shortness Of Breath Albuterol (Albuterol 8.5 Gm Mdi Inhalation) 2 puff IH Q4HR PRN PRN Reason: Shortness Of Breath Albuterol/Ipratropium (Ipratropium/Albuterol Sulfate 3 Ml Ampul.Neb) 1 ampul IH Q6HRT [facility] Hydromorphone HCl (Hydromorphone 1 Mg/1 Ml Inj) 0.5 mg IV Q3H PRN PRN Reason: Pain , Severe (7-10) Lisinopril (Lisinopril 40 Mg Tab) 40 mg PO QDAY [place]ORA Morphine Sulfate (Morphine 2 Mg/1 Ml Inj) 2 mg IV Q4H PRN PRN Reason: Pain, Moderate (4-6) Ondansetron HCl (Ondansetron 4 Mg/2 Ml Inj) 4 mg IV Q8H PRN PRN Reason: Nausea And Vomiting Sodium Chloride (Sodium Chloride 0.9% 10 Ml Flush Syringe) 10 ml IV BID FLORA Sodium Chloride (Sodium Chloride 0.9% 10 Ml Flush Syringe) 10 ml IV PRN PRN PRN Reason: LINE FLUSH Tamsulosin HCl (Tamsulosin 0.4 Mg Cap) 0.4 mg PO QDAY [facility] Review of Systems All systems: negative Gastrointestinal: BRBPR, other (Rectal bleeding) Exam - Constitutional Vitals: Temp Pulse Resp BP Pulse Ox 98.1 F 79 20 158/41 97 05/28/21 20:07 05/28/21 20:07 05/28/21 20:07 05/28/21 20:07 05/28/21 20:07 General appearance: Present: no acute distress, well-nourished - EENT Eyes: Present: PERRL ENT: hearing intact, clear oral mucosa - Neck Neck: Present: supple, normal ROM - Respiratory Respiratory effort: normal Respiratory: bilateral: diminished - Cardiovascular Heart Sounds: Present: S1 & S2. Absent: rub, click - Extremities Extremities: pulses symmetrical, No edema Peripheral Pulses: within normal limits - Abdominal General gastrointestinal: Present: soft, non-tender, non-distended, normal bowel sounds Male genitourinary: Present: normal - Integumentary Integumentary: Present: clear, warm, dry - Musculoskeletal Musculoskeletal: gait normal, strength equal bilaterally - Psychiatric Psychiatric: appropriate mood/affect, intact judgment & insight - Neurologic Neurologic: CNII-XII intact, moves all extremities Results - Labs CBC & Chem 7: 05/28/21 21:17 05/28/21 21:17 Labs: Laboratory Last Values WBC 11.0 K/mm3 (4.5-11.0) 05/28/21 21:17 RBC 3.23 M/mm3 (3.65-5.03) L 05/28/21 21:17 Hgb 10.9 gm/dl (11.8-15.2) L 05/28/21 21:17 Hct 32.8 % (35.5-45.6) L 05/28/21 21:17 MCV 102 fl (84-94) H 05/28/21 21:17 MCH 34 pg (28-32) H 05/28/21 21:17 MCHC 33 % (32-34) 05/28/21 21:17 RDW 15.5 % (13.2-15.2) H 05/28/21 21:17 Plt Count 247 K/mm3 (140-440) 05/28/21 21:17 Lymph % (Auto) 19.6 % (13.4-35.0) 05/28/21 21:17 [place] % (Auto) 11.4 % (0.0-7.3) H 05/28/21 21:17 Eos % (Auto) 0.3 % (0.0-4.3) 05/28/21 21:17 Baso % (Auto) 0.4 % (0.0-1.8) 05/28/21 21:17 Lymph # (Auto) 2.2 K/mm3 (1.2-5.4) 05/28/21 21:17 [place] # (Auto) 1.3 K/mm3 (0.0-0.8) H 05/28/21 21:17 Eos # (Auto) 0.0 K/mm3 (0.0-0.4) 05/28/21 21:17 Baso # (Auto) 0.0 K/mm3 (0.0-0.1) 05/28/21 21:17 Seg Neutrophils % 68.3 % (40.0-70.0) 05/28/21 21:17 Seg Neutrophils # 7.5 K/mm3 (1.8-7.7) 05/28/21 21:17 PT 13.5 Sec. (12.2-14.9) 05/28/21 21:17 INR 0.93 (0.87-1.13) 05/28/21 21:17 APTT 37.8 Sec. (24.2-36.6) H 05/28/21 21:17 Sodium 123 mmol/L (137-145) L 05/28/21 21:17 Potassium 4.5 mmol/L (3.6-5.0) 05/28/21 21:17 Chloride 87.6 mmol/L (98-107) L 05/28/21 21:17 Carbon Dioxide 25 mmol/L (22-30) 05/28/21 21:17 Anion Gap 15 mmol/L 05/28/21 21:17 BUN 14 mg/dL (9-20) 05/28/21 21:17 Creatinine 1.0 mg/dL (0.8-1.3) 05/28/21 21:17 Estimated GFR > 60 ml/min 05/28/21 21:17 BUN/Creatinine Ratio 14 % 05/28/21 21:17 Glucose 91 mg/dL (75-100) 05/28/21 21:17 Calcium 9.1 mg/dL (8.4-10.2) 05/28/21 21:17 Total Bilirubin 0.70 mg/dL (0.1-1.2) 05/28/21 21:17 AST 19 units/L (5-40) 05/28/21 21:17 ALT 14 units/L (7-56) 05/28/21 21:17 Alkaline Phosphatase 99 units/L (35-129) 05/28/21 21:17 Total Protein 7.0 g/dL (6.3-8.2) 05/28/21 21:17 Albumin 4.3 g/dL (3.9-5) 05/28/21 21:17 Albumin/Globulin Ratio 1.6 % 05/28/21 21:17 Lipase 26 units/L (13-60) 05/28/21 21:17 - Imaging and Cardiology CT scan - abdomen: report reviewed Assessment and Plan VTE prophylaxis?: Mechanical Plan of care discussed with patient/family: Yes - Patient Problems (1) Acute lower GI bleeding Current Visit: Yes Status: Acute Plan to address problem: Admit the patient to the medical telemetry. NPO. Normal saline at the rate of 100 cc/h. Protonix 40 mg IV every 12 hours. GI evaluation. Recheck CBC BMP in the morning. (2) Hyponatremia Current Visit: Yes Status: Acute Plan to address problem: Normal saline at the rate of 100 cc/h. Recheck BMP in the morning (3) Diabetes mellitus type 2 in nonobese Current Visit: No Status: Acute Plan to address problem: NPO. Humalog sliding scale with Accu-Chek every 6 hours moderate dose. Diabetic education (4) DVT prophylaxis Current Visit: Yes Status: Acute Plan to address problem: SCD for DVT prophylaxis. Protonix 40 mg IV every 12 hours for GI prophylaxis. Patient is a full code
[2021-05-29] MEDS ORDERED: ACYCLOVIR 800 MG TAB PO SCH (01:00)
[2021-05-29] MEDS ORDERED: IPRATROPIUM/ALBUTEROL SULFATE 3 ML AMPUL.NEB IH SCH (02:00)
[2021-05-29] MEDS: INSULIN LISPRO 100 UNIT/ML SUB-Q SCH ×3 (06:41→18:31)
[2021-05-29] MEDS: PANTOPRAZOLE 40 MG INJ IV SCH ×2 (09:49→22:18)
[2021-05-29] MEDS ORDERED: LISINOPRIL 40 MG TAB PO SCH (10:00)
[2021-05-29] MEDS ORDERED: TAMSULOSIN 0.4 MG CAP PO SCH (10:00)
[2021-05-29 13:18] LABS: Basophils % (Auto) 0.2 % (0.0-1.8); Eosinophils % (Auto) 0.5 % (0.0-4.3); Hematocrit 34.4 % (35.5-45.6); Hemoglobin 11.5 gm/dl (11.8-15.2); Lymphocytes # (Auto) 1.7 K/mm3 (1.2-5.4); Lymphocytes % (Auto) 21.5 % (13.4-35.0); Mean Corpuscular HGB Conc 33 % (32-34); Mean Corpuscular Volume 102 fl (84-94); Monocytes % (Auto) 12.3 % (0.0-7.3); Platelet Count 237 K/mm3 (140-440); Red Blood Count 3.38 M/mm3 (3.65-5.03); Red Cell Distribution Width 15.7 % (13.2-15.2)
[2021-05-29 13:28] LABS: Calcium 9.2 mg/dL (8.4-10.2)
[2021-05-29] MEDS ORDERED: POLYETHYLENE GLYCOL/ELECT SOLN 4000 ML PO NR (16:28)
--- NOTE | 2021-05-29 16:28 | Gastroenterology Consultation ---
History of Present Illness - Reason for Consult Consult date: 05/29/21 GI bleed Requesting physician: DANIA NEIL - History of Present Illness This is an 85 yo male with pmh of HTN, DM, BPH, and psoriasis presenting to the ED for bloody stools and abdominal pain x 4 days. GI consulted for GI bleed. Patient reports bloody stools without melena. Reports diffuse abdominal cramping pain. No h/o anticoagulation use or NSAID use. No prior colonoscopy that he can remember. No BM since in the ED. In the emergency room CT scan of the abdomen showed no acute abnormality no evidence of active GI bleeding. No evidence of bowel obstruction or localized bowel inflammation. Scattered colonic diverticulosis without evidence of diverticulitis. Initial globin is 10.9 and hematocrit 32.8. Medication list reviewed. Past History Past Medical History: diabetes, hypertension Past Surgical History: TURP Medications and Allergies Allergies Allergy/AdvReac Type Severity Reaction Status Date / Time No Known Allergies Allergy Verified 05/28/21 20:10 Home Medications Medication Instructions Recorded Confirmed Last Taken Type Albuterol Sulfate [Ventolin Hfa] 2 puff INHALATION Q4HR PRN 08/14/18 05/29/21 05/28/21 History Metformin HCl [Glucophage] 500 mg PO BID 08/14/18 05/29/21 05/28/21 History Tamsulosin [Flomax] 0.4 mg PO QDAY 08/14/18 05/29/21 05/28/21 History lisinopriL [Zestril TAB] 40 mg PO QDAY 08/14/18 05/29/21 05/28/21 History Active Meds: Active Medications Acetaminophen (Acetaminophen 325 Mg Tab) 650 mg PO Q4H PRN PRN Reason: Pain MILD(1-3)/Fever >100.5/[place] Albuterol (Albuterol 2.5 Mg/3 Ml Nebu) 2.5 mg IH Q4HRT PRN PRN Reason: Shortness Of Breath Albuterol/Ipratropium (Ipratropium/Albuterol Sulfate 3 Ml Ampul.Neb) 1 ampul IH Q6HRT [place] Dextrose (Dextrose 50% In Water (25gm) 50 Ml Syringe) 50 ml IV Q30MIN PRN; Protocol PRN Reason: Hypoglycemia Hydromorphone HCl (Hydromorphone 1 Mg/1 Ml Inj) 0.5 mg IV Q3H PRN PRN Reason: Pain , Severe (7-10) Sodium Chloride (Nacl 0.9% 1000 Ml) 1,000 mls @ 100 mls/hr IV DIRECT [facility] Insulin Human Lispro (Insulin Lispro 100 Unit/Ml) 0 unit SUB-Q Q6HR [facility]; Protocol Last Admin: 05/29/21 11:56 Dose: Not Given Documented by: Lisinopril (Lisinopril 40 Mg Tab) 40 mg PO QDAY [facility] Morphine Sulfate (Morphine 2 Mg/1 Ml Inj) 2 mg IV Q4H PRN PRN Reason: Pain, Moderate (4-6) Last Admin: 05/29/21 02:27 Dose: 2 mg Documented by: Ondansetron HCl (Ondansetron 4 Mg/2 Ml Inj) 4 mg IV Q8H PRN PRN Reason: Nausea And Vomiting Pantoprazole Sodium (Pantoprazole 40 Mg Inj) 40 mg IV BID [facility] Last Admin: 05/29/21 09:49 Dose: 40 mg Documented by: Sodium Chloride (Sodium Chloride 0.9% 10 Ml Flush Syringe) 10 ml IV BID [facility] Last Admin: 05/29/21 09:56 Dose: 10 ml Documented by: Sodium Chloride (Sodium Chloride 0.9% 10 Ml Flush Syringe) 10 ml IV PRN PRN PRN Reason: LINE FLUSH Tamsulosin HCl (Tamsulosin 0.4 Mg Cap) 0.4 mg PO QDAY [facility] Last Admin: 05/29/21 09:57 Dose: 0.4 mg Documented by: Review of Systems - Review of Systems All systems: negative Constitutional: no weight loss, no weight gain Cardiovascular: no chest pain Gastrointestinal: abdominal pain, nausea, BRBPR, hematochezia Rectal: no pain Musculoskeletal: no gait dysfunction Neurological: no weakness Psychiatric: no anxiety Endocrine: no cold intolerance Exam - Constitutional Vital Signs: Temp Pulse Resp BP Pulse Ox 98.1 F 90 23 142/52 96 05/28/21 20:07 05/29/21 12:00 05/29/21 06:45 05/29/21 12:00 05/29/21 08:16 General appearance: no acute distress - EENT Eyes: EOM intact ENT: hearing decreased - Neck Neck: supple - Cardiovascular Rhythm: regular Heart Sounds: Present: S1 & S2 - Gastrointestinal General gastrointestinal: Present: soft, tender, non-distended - Integumentary Integumentary: Present: warm, rash - Neurologic Neurological: alert and oriented x3 - Labs CBC & Chem 7: 05/29/21 12:47 05/29/21 12:47 Lab Results: Laboratory Results - last 24 hr 05/28/21 05/28/21 05/28/21 21:17 21:17 21:17 WBC 11.0 RBC 3.23 L Hgb 10.9 L Hct 32.8 L MCV 102 H MCH 34 H MCHC 33 RDW 15.5 H Plt Count 247 Lymph % (Auto) 19.6 Sully % (Auto) 11.4 H Eos % (Auto) 0.3 Baso % (Auto) 0.4 Lymph # (Auto) 2.2 Sully # (Auto) 1.3 H Eos # (Auto) 0.0 Baso # (Auto) 0.0 Seg Neutrophils % 68.3 Seg Neutrophils # 7.5 Percent Retic PT 13.5 INR 0.93 APTT 37.8 H Sodium 123 L Potassium 4.5 Chloride 87.6 L Carbon Dioxide 25 Anion Gap 15 BUN 14 Creatinine 1.0 Estimated GFR > 60 BUN/Creatinine Ratio 14 Glucose 91 POC Glucose Calcium 9.1 Total Bilirubin 0.70 AST 19 ALT 14 Alkaline Phosphatase 99 Total Protein 7.0 Albumin 4.3 Albumin/Globulin Ratio 1.6 Lipase 26 Vitamin B12 Folate 05/29/21 05/29/21 05/29/21 06:37 12:47 12:47 WBC RBC Hgb Hct MCV MCH MCHC RDW Plt Count Lymph % (Auto) Sully % (Auto) Eos % (Auto) Baso % (Auto) Lymph # (Auto) Sully # (Auto) Eos # (Auto) Baso # (Auto) Seg Neutrophils % Seg Neutrophils # Percent Retic PT INR APTT Sodium Potassium Chloride Carbon Dioxide Anion Gap BUN Creatinine Estimated GFR BUN/Creatinine Ratio Glucose POC Glucose 94 Calcium Total Bilirubin AST ALT Alkaline Phosphatase Total Protein Albumin Albumin/Globulin Ratio Lipase Vitamin B12 886.5 Folate 20.00 05/29/21 05/29/21 12:47 12:47 WBC 7.9 RBC 3.38 L Hgb 11.5 L Hct 34.4 L MCV 102 H MCH 34 H MCHC 33 RDW 15.7 H Plt Count 237 Lymph % (Auto) 21.5 Sully % (Auto) 12.3 H Eos % (Auto) 0.5 Baso % (Auto) 0.2 Lymph # (Auto) 1.7 Sully # (Auto) 1.0 H Eos # (Auto) 0.0 Baso # (Auto) 0.0 Seg Neutrophils % 65.5 Seg Neutrophils # 5.2 Percent Retic 2.83 H PT INR APTT Sodium 130 L D Potassium 4.6 Chloride 93.3 L Carbon Dioxide 27 Anion Gap 14 BUN 15 Creatinine 1.2 Estimated GFR 58 BUN/Creatinine Ratio 13 Glucose 133 H POC Glucose Calcium 9.2 Total Bilirubin AST ALT Alkaline Phosphatase Total Protein Albumin Albumin/Globulin Ratio Lipase Vitamin B12 Folate - Imaging CT Scan: report reviewed Assessment and Plan # Lower GI bleed - H/H stable - HD stable. - no prior colonoscopy - CT a/p without signs of active bleeding. diverticulosis without inflammation. - ddx including diverticular bleed, ischemic colitis, AVMs, malignancy Rec - recommend colonoscopy. Anesthesia is not available tomorrow. Will need to schedule for colonoscopy on . - clear liquids now and prep with golytely. May need 2 day prep. - Patient Problems (1) Acute lower GI bleeding Current Visit: Yes Status: Acute
[2021-05-29 20:30] VITALS: BP 131/66
--- NOTE | 2021-05-29 21:08 | Event Note ---
Date: 05/29/21 Progress note: Chart reviewed, patient was reviewed, seen and examined by me in ED at about 11 AM. 85-year-old male history of hypertension, hyponatremia, diabetes mellitus, BPH, psoriasis who presents with bloody stools and abdominal pain for 3-4 days as per the . he has diffuse crampy moderately severe abdominal pain. He denies use of aspirin, ibuprofen. He denies use of anticoagulation. According to patient, no history of GI bleed. Patient reports that he had a colonoscopy about a year ago which was unremarkable. In the emergency room CT scan of the abdomen showed no acute abnormality no evidence of active GI bleeding. No evidence of bowel obstruction or localized bowel inflammation. Scattered colonic diverticulosis without evidence of diverticulitis. Initial globin is 10.9 and hematocrit 32.8. GI consulted, awaiting recommendations. N.p.o. currently. Patient reports no BM since admitted. Patient denies chest pains, palpitations, lightheadedness, dyspnea/dizziness/nausea/abdominal pains, hematemesis or hematuria. Patient states that he has a history of heart failure and takes nitroglycerin when he has chest pains which she had several days ago for the last time. Hemoglobin is actually rising from 10.9-1.5. Sodium is low at 123 improved to 130. Patient has history of hyponatremia. Currently patient is alert and oriented and pacing around the room. He is anxious. Vital signs stable. Reported rectal bleed with abdominal pain with no past medical history, etiology diverticular bleed versus other causes Patient reports having colonoscopy about a year ago which was unremarkable. Remains hemodynamically stable and asymptomatic currently. No BM since admitted. Hemoglobin actually improving from 10.9-11.5 with a normal WBC and platelet counts. Macrocytic anemia with normal B12 and folate levels. Hyponatremia sodium 123 improved to 130. Patient does have history of hypona tremia but previous labs. Etiology unclear. Discussed with the patient and the nursing staff in the ED.
== END 2021-05-29 22:39 | disposition left against medical advice (07) ==
LOC: ED 20:05 → 4A 23:03
PROVIDERS: ADMIT Hospitalist; ATTEND Internal Medicine
DX: K92.2 Gastrointestinal hemorrhage, unspecified (principal); E87.1 Hypo-osmolality and hyponatremia; I10 Essential (primary) hypertension; E11.9 Type 2 diabetes mellitus without complications; E66.9 Obesity, unspecified; Z79.899 Other long term (current) drug therapy; Z98.890 Other specified postprocedural states; Z79.84 Long term (current) use of oral hypoglycemic drugs; Z68.23 Body mass index [BMI] 23.0-23.9, adult
CPT/HCPCS: 36415; 74174; 80048; 80053; 82270; 82607; 82747; 82962; 83690; 85025; 85045; 85610; 85730; 96374; 96375; 96376; 99285; C9113; G0378; J2270; J2405; Q9967